=== PATIENT | female | born 2000 ===

== ENCOUNTER 2025-04-13 20:17 | Inpatient (IN) | payer BC | END 2025-04-20 15:50 | disposition home or self-care (01) | DRG 885 | LOC: BHU 20:17 | PROVIDERS: ADMIT Psychiatry & Neurology Psychiatry | DX: F33.2 Major depressive disorder, recurrent severe without psychotic features (principal); F43.25 Adjustment disorder with mixed disturbance of emotions and conduct; F41.1 Generalized anxiety disorder; Z79.899 Other long term (current) drug therapy ==